=== PATIENT | female | born 1990 | race Caucasian/White ===

== ENCOUNTER 2017-03-31 09:29 | Day surgery (SDC) | payer BC, OTHER ==
[~2017-03-31 09:29] MED LIST: RINGER'S SOLUTION,LACTATED 1,000 ML IV PRN
[2017-03-31 09:49] LABS: Hematocrit 38.8 % (37.0-47.0); Hemoglobin 13.4 gm/dL (12.5-16.0); Mean Cell Volume 87.6 fl (78-100); Mean Corpuscular Hemoglobin 30.2 pg (27-31); Mean Corpuscular Hgb Conc 34.5 g/dl (32-36); Mean Platelet Volume 9.8 fl (6.0-9.5); Neutrophil # 3.9 K/mm3 (1.3-6.0); Neutrophil % 55.1 % (42-75.0); Platelet Count 305 K/mm3 (150-450); Red Blood Count 4.43 M/mm3 (4.2-5.4); Red Cell Distribution Width 12.1 % (11.5-14.0); White Blood Count 7.1 K/mm3 (4.0-10.5)
[2017-03-31 10:12] LABS: Albumin * 4.5 gm/dl (3.4-5.0); Anion Gap 11.8 mmol/L (6.8-13.8); BUN/Creatinine Ratio 15.2 (9.0-21.6); Bilirubin, Total 1.5 mg/dL (0.0-1.1); Ca. Corrected For Albumin 8.5 mg/dL (8.4-10.2); Calcium * 9.2 mg/dL (7.9-10.9); Carbon Dioxide 28.8 mmol/L (24-32.6); Potassium 3.6 mmol/L (3.4-4.6); Total Protein 8.6 gm/dL (6.2-8.2)
[2017-03-31] MEDS ORDERED: RINGER'S SOLUTION,LACTATED 1,000 ML IV ONE (10:15)
[2017-03-31] MEDS ORDERED: FERRIC SUBSULFATE 8 ML VIAL TP ONE (11:30)
[2017-03-31] MEDS ORDERED: LIDOCAINE HCL/EPINEPHRINE 30 ML VIAL IJ ONE (11:30)
[2017-03-31] MEDS ORDERED: oxyCODONE HCL/ACETAMINOPHEN 1 TAB TABLET PO ONE (11:41)
[2017-03-31] MEDS ORDERED: RINGER'S SOLUTION,LACTATED 1,000 ML IV PRN (11:41)
[2017-03-31] MEDS ORDERED: IBUPROFEN 800 MG TABLET PO ONE (11:41)
--- NOTE | 2017-03-31 11:41 | OR ---
Operative Report - Dictated Report Narrative: Date of Procedure: 03/31/2017 PROCEDURE: 1. Loop electrosurgical excision procedure (LEEP) of the cervix ANESTHESIA: General with LMA PREOPERATIVE DIAGNOSIS: 1. ROSALIA 2 at 6 o'clock cervix and in endocervical curettage 2. LGSIL Pap smear 3. Positive high risk HPV POSTOPERATIVE DIAGNOSIS: 1. ROSALIA 2 at 6 o'clock cervix and in endocervical curettage 2. LGSIL Pap smear 3. Positive high risk HPV SURGEON: Jevon Philippe MD TRANSIT WORKER: Swati FINDINGS: Cervix: no gross lesions, small non-staining area (by Lugol solution) seen near cervical os. SPECIMEN: 1. Cervical cone with suture at 12 o'clock 2. Post cone ECC DRAINS: None. URINE OUTPUT: not measured BLOOD LOSS: 2 mL. INTRAOPARATIVE IV FLUIDS: 600 ml. COMPLICATIONS: None. DETAILS OF PROCEDURE: The patient consented prior to the procedure and was taken to the operating room. She was placed on the operating table in a supine position. SCDs were placed on her lower extremities. General anesthesia was induced without difficulty. The patient was then repositioned in the dorsal lithotomy position. Exam under anesthesia noted a normal uterus with no adnexal mass. She was prepped with betadine and draped in the usual sterile fashion. A time out procedure was performed to confirm the correct patient for the correct procedure. A bivalve speculum was placed into the vagina. The cervix was visualized. Vagina was prepped with betadine one more time. A stay suture of 0 Vicryl was placed at the lateral edge of the cervix at 3 and 9 o'clock position. These served to ligate the cervical branch of the uterine artery to help decrease the bleeding and also to provide traction for the procedure. At this point, the bivalve speculum was changed to an insulated speculum with an insulated side wall retractor. The cervix was then stained with Lugol solution. Small non-staining area was noted near the cervical os. There was no gross lesion. The cervix was infiltrated with 1% lidocaine with epinephrine at 12 o'clock, 3 o'clock, 6 o'clock, and 9 o'clock position. A total of 15 mL of lidocaine with epinephrine was used. An electrical loop set at 60 for cut was used to make a cervical cone biopsy. The specimen was removed in one piece as labelled above. A post cone ECC was performed. The cervical crater was cauterized with a Bovie ball tip set at 40 for coag. Hemostasis was assured. The cervix cone crater was further covered with Monsel solution. The area was completely hemostatic. The stay suture at 3 o'clock and 9 o'clock was cut. The speculum was removed. The patient tolerated the procedure well. All counts were correct. The patient was awakened from anesthesia and taken to the recovery room in stable condition. Jevon Philippe MD
[2017-03-31 13:15] VITALS: BP 120/70
== END 2017-03-31 09:30 | disposition home or self-care (01) ==
LOC: AMB 09:29
PROVIDERS: ATTEND Obstetrics & Gynecology
PROC: 0UBC7ZX Excision of Cervix, Via Natural or Artificial Opening, Diagnostic (ICD-10-PCS; principal; 2017-03-31)
DX: N87.1 Moderate cervical dysplasia (principal); R87.810 Cervical high risk human papillomavirus (HPV) DNA test positive; Z87.440 Personal history of urinary (tract) infections; Z87.891 Personal history of nicotine dependence; Z68.25 Body mass index [BMI] 25.0-25.9, adult